=== PATIENT | male | born 1985 | race African-American/Black ===

== ENCOUNTER 2020-08-19 13:15 | Emergency (ER) | payer OTHER ==
[~2020-08-19] VITALS: Ht 190.5 cm; Wt 163.3 kg
[2020-08-19] MEDS ORDERED: LISINOPRIL20 MG PO ×2 (13:43→13:49)
[2020-08-19] MEDS ORDERED: NORVASC 2.5 MG2.5 M1 PO (13:44)
[2020-08-19] MEDS ORDERED: NORVASC10 MG PO (13:49)
[2020-08-19 13:59] VITALS: BP 172/91
== END 2020-08-19 14:01 | disposition home or self-care (01) ==
LOC: M.ERS 13:15
DX: I10 Essential (primary) hypertension (principal); Z76.0 Encounter for issue of repeat prescription